=== PATIENT | male | born 1960 | race Caucasian/White ===

== ENCOUNTER → 2020-06-28 15:30 | Outpatient (CLI) | payer OTHER, SELFPAY ==
[2020-06-29 08:29] LABS: COVID19 Sendout Not Detected (Not Detect)
== END ==
PROVIDERS: Visit Provider Physician Assistant
DX: Z11.59 Encounter for screening for other viral diseases (principal)
CPT/HCPCS: 87635

== ENCOUNTER 2020-07-01 14:56 | Day surgery (SDC) | payer OTHER, SELFPAY ==
--- NOTE | 2020-07-01 | PATH_ITS ---
[facility] Accession Number: [id number] . 01 Material submitted: . colon - DISTAL SIGMOID POLYP 8MM . 01 Clinical history: . SDC . 02 Diagnosis: Distal Sigmoid Colon, Polyp 8 mm, Biopsy: Tubular adenoma. MRV 07/03/2020 1319 Local . 02 Electronically signed: . Afua Montesinos MD, Pathologist NPI- [id number] . 01 Gross description: . DISTAL SIGMOID POLYP 8MM: Received in formalin are 3 fragment(s) of alvarez, soft tissue measuring 0.4 x 0.3 x 0.3 cm to 0.2 x 0.2 x 0.1 cm submitted entirely in 1 cassette(s) /QBJ 07/02/2020 0703 Local . 02 Pathologist provided ICD-10: D12.8 . 02 CPT . 126582 Performed at: [address] [facility] [address] [facility], [place], [place] [id number] MD Jesus Esteves MD Phone: [phone] Performed at: [facility] [address] [place], [place] [id number] MD Afua Montesinos MD Phone: [phone]
--- NOTE | 2020-07-01 12:33 | P.HP_ITS ---
History of Present Illness History of Present Illness Date Patient Seen: 07/01/20 Chief complaint: [facility] [place] Narrative: 59 Years Old Male seen today for consideration of a screening colonoscopy. He has never had a colonoscopy. There have been no lower GI symptoms suggesting disease such as change in bowel habits, bleeding, abdominal pain or anemia. There's been no family history of colon cancer or colon polyps. Overall health issues have been stable, including no major cardiac events for at least 6 weeks. 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 Education: GED Children: Brenna(1981) Household Members: , brother- vu Alcohol drinks/day: 3-4 per week Caffeine use/day: 2-3 Type of Exercise: walk Exercise Times per Week: 5 Guns in home: no Dental Care w/in 6 mos.: yes Sun Exposure: frequently Seat Belt Use: yes Smoking Status: never smoker Drug Use: never HIV High Risk Behavior: no Meds Home Medications and Allergies Allergies Allergy/AdvReac Type Severity Reaction Status Date / Time bee venom protein (honey bee) Allergy Severe Anaphylaxis Verified 07/01/20 15:21 Review of Systems Review of Systems ROS: Yes All systems reviewed with the patient and are negative except as otherwise documented Exam Narrative Exam Narrative: GENERAL: Alert and oriented, appearing stated age and in no acute distress. HEENT: Head normocephalic/atraumatic. Pupils equal, round, and reactive to light and accomodation. Extraocular muscles intact. Tympanic membranes clear. Nasal mucosa moist, septum midline. Oral mucosa moist, no lesions. Neck soft and supple, no lymphadenopathy. LUNGS: Clear to ausculation bilaterally, no wheezes, rhonchi or rales. CV: Normal S1 and S2 with regular rate and rhythm, no audible murmurs, rubs or gallops. ABDOMEN: Soft, non-tender, non-distended, no organomegaly. Positive bowel sounds. EXTREMITIES: No clubbing, cyanosis, or edema. NEURO: Cranial nerves II through XII grossly intact, no focal deficits. PSYCH: Alert and oriented x 3. SKIN: No concerning lesions. Assessment & Plan Assessment & Plan narrative: 1. Screening for colon cancer Plan for colonoscopy. The nature and character of the procedure as well as anticipated results were discussed. The possibility of not completing the proc edure was also discussed. Possible complications including aspiration pneumonia, bleeding, perforation and reaction to medications either for sedation or preparation and missed lesions were discussed. Questions were answered and proceeding to the colonoscopy was elected. Informed consent signed.
--- NOTE | 2020-07-01 12:35 | PM.OP.ENDO ---
Operative Date/Time/Diagnoses Date of procedure: 07/01/20 Procedure Notes SCOAP/Timeout: 3:50 p.m. Procedure in detail: ENDOSCOPIST: Nilda Gallardo MD Sedation RN: Gracy March RN Sedation start time: 3:51 p.m. Sedation end time: 4:17 p.m. PROCEDURE: Colonoscopy with biopsy INDICATIONS: 1. Screening for colon cancer MEDICATION: Levsin 0.125 mg sublingual, incremental doses of Versed and fentanyl until appropriate level sedation achieved. ASA CLASS: 1 CECAL WITHDRAWAL TIME: 17 minutes COMPLICATIONS: None. EXTENT OF PROCEDURE: Cecum. QUALITY OF PREP: Good with portions of liquid stool. PROCEDURE: Prior to insertion of the colonoscope, a digital rectal examination was accomplished with circumferential palpation of the distal rectal mucosa without significant findings being noted. The high-definition colonoscope was passed into the rectum in the usual fashion and advanced over to the cecum without difficulty. The ileocecal valve, appendiceal stoma, and medial wall all could be inspected and no abnormalities were seen. ASCENDING COLON: As the colonoscope was withdrawn, care was taken to expose and inspect the haustral folds and no abnormalities were seen. HEPATIC FLEXURE: Normal, no polyps, diverticula or other abnormalities. TRANSVERSE COLON: Normal, no polyps, diverticula or other abnormalities. DESCENDING COLON: Normal, no polyps, diverticula or other abnormalities. SIGMOID COLON: 8 mm polyp, sessile, removed with Jumbo cold biopsy forceps. Otherwise, normal, no diverticula or other abnormalities. RECTUM: Normal. J maneuver was produced. There was no significant perianal disease. The J maneuver was broken. The remainder of the rectum was inspected and there was no external hemorrhoid disease. The scope was withdrawn. IMPRESSION: 1. Distal sigmoid polyp, 8 mm, removed with Jumbo cold forceps PLAN: 1. Follow-up in clinic status post pathology results. The possibility of a missed lesion including a malignancy has been discussed with the patient previously. Potential alarm symptoms have been discussed and should be reported immediately.
[2020-07-01 15:25] VITALS: BMI 78.7
[2020-07-01 15:32] VITALS: BP 144/90; PULSE 86; RESP 14; TEMP 36.6; O2SAT 96
[2020-07-01] MEDS: HYOSCYAMINE 0.125 MG TABLET PO (15:36)
[2020-07-01] MEDS: LACTATED RINGERS 1,000 ML 200 ML IV (15:38)
[2020-07-01] MEDS: fentaNYL 250 MCG/5 ML INJ IV (15:51)
[2020-07-01] MEDS: MIDAZOLAM 5 MG/5 ML VIAL IV (15:51)
[2020-07-01 16:22] VITALS: BP 128/86; PULSE 73; RESP 17; O2SAT 97
[2020-07-01 16:27] VITALS: BP 132/84; PULSE 72; RESP 17; O2SAT 99
[2020-07-01 16:36] VITALS: BP 132/82; PULSE 71; RESP 14; TEMP 36.6; O2SAT 95
[2020-07-01 16:45] VITALS: BP 142/90; PULSE 75; RESP 14; TEMP 36.5; O2SAT 97
== END 2020-07-01 17:08 | disposition home or self-care (01) ==
PROVIDERS: PCP Student in an Organized Health Care Education/Training Program; Referring Provider Student in an Organized Health Care Education/Training Program; Visit Provider Student in an Organized Health Care Education/Training Program
PROC: 0DJD8ZZ Inspection of Lower Intestinal Tract, Via Natural or Artificial Opening Endoscopic (ICD-10-PCS; CPT 45378; principal; 2020-07-01 16:00)
DX: Z12.11 Encounter for screening for malignant neoplasm of colon (principal); D12.5 Benign neoplasm of sigmoid colon
CPT/HCPCS: 45380; J2250; J3010

== ENCOUNTER → 2024-03-07 16:58 | Outpatient (CLI) | payer OTHER, SELFPAY | PROVIDERS: PCP Student in an Organized Health Care Education/Training Program; Visit Provider Physician Assistant Surgical | DX: J02.9 Acute pharyngitis, unspecified (principal) | CPT/HCPCS: 87070 ==